=== PATIENT | male | born 1945 | race Caucasian/White ===

== ENCOUNTER 2021-11-30 07:54 | Emergency (ER) | payer MEDICARE ==
[~2021-11-30] VITALS: Ht 182.9 cm; Wt 86.2 kg
[2021-11-30 08:52] LABS: BASOPHIL 1.3 % (0-2); EOSINOPHIL 0.6 % (0-7); HCT 39.6 % (42.0-52.0); HGB 13.9 g/dl (13.2-18.0); LYMPHOCYTE 53.7 % (15-48); MCH 31.7 pg (25.0-31.0); MCHC 35.1 g/dL (32.0-36.0); MCV 90.4 fL (78.0-100.0); MONOCYTE 5.7 % (0-12); MPV 10.2 fL (6.0-9.5); NEUTROPHIL 38.4 % (41-80); NRBC 0; PLT 204 K/uL (150-400); RBC 4.38 M/uL (4.70-6.00); RDW 13.8 % (11.5-14.0)
[2021-11-30 08:53] LABS: WBC 8.6 K/uL (4.0-10.5)
[2021-11-30 09:05] LABS: BILIRUBIN NEGATIVE (NEGATIVE); BLOOD NEGATIVE Ery/uL (NEGATIVE); CLARITY CLEAR (CLEAR); COLOR YELLOW (YELLOW); GLUCOSE (U) NORMAL (NORMAL); LEUKOCYTES NEGATIVE Leu/uL (NEGATIVE); NITRITE NEGATIVE (NEGATIVE); PROTEIN NEGATIVE (NEGATIVE); SPECIFIC GRAVITY 1.025 (1.001-1.030); UROBILINOGEN 0.2 mg/dL (0.2-1.0)
[2021-11-30 09:09] LABS: AMPHETAMINES NEGATIVE (NEGATIVE); BARBITURATES NEGATIVE (NEGATIVE); ECSTASY (MDMA) NEGATIVE (NEGATIVE); MARIJUANA (THC) NEGATIVE (NEGATIVE); METHADONE NEGATIVE (NEGATIVE); OPIATES NEGATIVE (NEGATIVE); OXYCODONE NEGATIVE (NEGATIVE)
[2021-11-30 09:27] LABS: ALKALINE PHOSHATASE 79 U/L (46-116); ALT 40 U/L (16-63); AST 45 U/L (15-37); BILIRUBIN - TOTAL 0.7 mg/dL (0.2-1.0); BUN 30 mg/dL (7-18); BUN/CREAT RATIO (CALC) 18.9 RATIO; CHLORIDE 96 mmol/L (98-107); CO2 (BICARBONATE) 25 mmol/L (21-32); CREATININE 1.59 mg/dL (0.67-1.17); GLOBULIN (CALCULATION) 3.8 g/dL; GLUCOSE 193 mg/dL (74-106); POTASSIUM 3.3 mmol/L (3.5-5.1); TOTAL PROTEIN 6.8 g/dL (6.4-8.2)
[2021-11-30 09:28] LABS: ACETAMINOPHEN (TYLENOL) < 2.0 ug/mL (10.0-30.0)
== END 2021-11-30 12:52 | disposition home or self-care (01) ==
LOC: FER 07:54
PROVIDERS: Emergency Medicine
DX: F32.A Depression, unspecified (principal); R53.83 Other fatigue; Z20.822 Contact with and (suspected) exposure to COVID-19
CPT/HCPCS: 36415; 71045; 80053; 80305; 81003; 83880; 84443; 84484; 85025; 85379; G0480; J3411; J3475; J7030; U0002